=== PATIENT | female | born 1950 | race Caucasian/White ===

== ENCOUNTER 2023-06-28 14:44 | Emergency (ER) | payer MEDICARE, SELFPAY ==
--- NOTE | ~2023-06-28 | XR_ITS ---
EXAMINATION: XR WRIST, RIGHT CLINICAL INFORMATION: Status post fall with pain. COMPARISON: None available. TECHNIQUE: PA, lateral, and oblique views of the right wrist. FINDINGS: The exam is limited. There is a distal radial fracture with volar angulation. Distal ulna and a ulnar side process appears to be intact. The carpal bones are visualized and unremarkable. There is a diffuse osteopenia. There is mild dorsal wrist soft tissue swelling. XR/XR wrist RT 2V IMPRESSION: : These fracture distal radius with moderate dorsal soft tissue swelling. Please note the exam is limited as patient is unable to move hand and wrist for appropriate views
--- NOTE | ~2023-06-28 | XR_ITS ---
EXAMINATION: XR WRIST, RIGHT CLINICAL INFORMATION: Post reduction. COMPARISON: Reduction radiographs done earlier today. TECHNIQUE: Two views of the right wrist. FINDINGS: Improved alignment at the fracture site involving the distal radius persistent angulation deformity on the lateral projection. No new abnormality. XR/XR wrist RT 2V IMPRESSION: Post reduction radiograph showing improved alignment on the frontal projection and persistent angulation deformity on the lateral view. No new abnormality.
[2023-06-28 14:46] VITALS: BP 164/94; PULSE 83; RESP 17; TEMP 37.2; O2SAT 97; BMI 21.4
--- NOTE | 2023-06-28 14:51 | ED.UPPEXIN ---
HPI - Extremity Injury (Upper) General Chief Complaint: Extremity Injury, Upper Stated Complaint: r arm inj Time Seen by Provider: 06/28/23 15:02 Source: patient Mode of arrival: ambulatory Limitations: no limitations History of Present Illness HPI narrative: Patient is a 73-year-old female presenting to the emergency department from urgent care with report of right wrist fracture. Patient states she was outdoors on her morning walking this morning when she tripped and fell onto outstretched arms. She denies hitting her head, denies loss of consciousness. She does not take any anticoagulants. She denies any past medical history and states she does not take any medications. Denies any numbness or tingling to her right hand. She arrives with a splint to her right wrist. complaint: injury to: right and wrist Onset (ago): hour(s) Other Extremity Injury: right: wrist Other injuries: none Handedness: right Place: outdoors Severity: moderate Relieving factors: rest Exacerbating factors: movement of extremity Context: fall Associated symptoms: denies other symptoms Treatments prior to arrival: splint Related Data Allergies Allergy/AdvReac Type Severity Reaction Status Date / Time No Known Allergies Allergy Verified 06/28/23 14:52 Review of Systems Review of Systems: As per HPI. Yes all other systems are reviewed and are negative Constitutional: Constitutional: Reports as per HPI [facility] Social History Social History Advance Directives: No Advance Directives Information Provided: No Physical Exam Vital Signs: Vital Signs: Last Vital Signs Temp 99.0 F 06/28/23 14:46 Pulse 83 06/28/23 14:46 Resp 17 06/28/23 14:46 BP 164/94 H 06/28/23 14:46 Pulse Ox 97 06/28/23 14:46 O2 Del Method Room Air 06/28/23 14:46 BMI result Body Mass Index 21.4 Vital signs have been reviewed and appear to be correct. Blood pressure elevated. Heart rate normal. Respiratory rate normal. Temperature normal. Oxygen saturation normal. Const: General: cooperative, healthy appearing and no acute distress Orientation/consciousness: oriented to person, oriented to place, oriented to time and patient oriented x3 Limitations: no limitations HEENT: Head: Yes normocephalic and Yes atraumatic Ears: external ears normal General nose exam: Normal external nose present Face and sinus: Yes face symmetric Mouth: oropharynx normal and moist mucous membranes Throat: Yes uvula midline Eyes: Pupils: Equal, round and reactive pupils present Neck: Neck: Yes normal visual inspection and Yes supple Resp: Effort & Inspection: normal respiratory effort and able to speak in complete sentences Auscultation: clear to auscultation bilaterally Cardio: Rate: regular rate Rhythm: regular rhythm Heart sounds: S1 normal heart sound present and S2 normal heart sound present GI: Palpation (GI): Soft to palpation and nontender Auscultation: normoactive bowel sounds : General: Yes no CVA tenderness Back/Spine/Pelvis: Back: no CVA tenderness Skin: General skin exam: elasticity normal and turgor normal Neuro: General: oriented to person, oriented to place, oriented to time, patient oriented x3, moves all extremities, no focal motor deficits and CN's II-XI intact bilaterally Cranial nerves: Yes Equal, round and reactive pupils present Cognition (Neuro): normal cognition Extrem: General: Yes full ROM, Yes normal exam except as noted, Yes no pedal edema and Yes no calf tenderness Right upper extremity: wrist Details: abnormal to inspection Details: obvious deformity, tenderness Location: of the distal radius, abnormal ROM Details: held in an abnormal fashion Details: with extension, crepitus Location: of the distal radius, normal vascular exam and radial pulse present; no lacerations and no ecchymosis and Extremity exam: right hand Details: normal to inspection, normal capillary refill, neuromotor exam normal, neurosensory exam normal and normal ROM of fingers Left upper extremity: normal to inspection, full ROM and normal capillary refill Psych: Mental Status: mental status grossly normal Affect: normal affect Thought process: Normal thought process present Course Course Course Narrative: This is a rapid medical exam. Deferred additional HPI, ROS, PE to primary provider. 73 yo female with no known medical problems, right hand dominant here with mechanical fall with catching herself with her right wrist. Denies hitting head or LOC. No AC therapy use. Seen at and referred in for reduction/splinting. Has disc from - Will need x-ray here. VSS Medications Administered Discontinued Medications Generic Name Dose Route Start Last Admin Trade Name Freq PRN Reason Stop Dose Admin Lidocaine HCl 10 ml 06/28/23 15:30 06/28/23 16:43 Lidocaine Hcl 2 % 20 Ml Vial INFILTRATI 06/28/23 15:31 10 ml ONCE ONE Administration Medical Decision Making Medical Decision Making [facility] Narrative: Patient is a 73-year-old female presenting to the emergency department from urgent care with report of right wrist fracture. On exam patient is awake, A+Ox3, VS WNL, afebrile, normal neurological exam without focal deficits, right distal wrist deformity, 2+ radial pulse, full ROM all fingers of right hand, neurovascularly intact distal. Given reported symptoms and physical exam findings, initial differential includes wrist fracture, dislocation. X-ray confirms displaced right distal radius fracture. My interpretation is in agreement with the radiologist's interpretation. Hematoma block and reduction attempted with Dr. Dia. Post-reduction films obtained. Case discussed with Dr. Wade who feels reduction is adequate and patient can follow-up in the clinic this week. Patient advised to avoid getting her splint wet and instructed not to remove her splint. Return precautions discussed at bedside. Instructed patient to medicate with Tylenol and ibuprofen, keep arm elevated at rest, apply ice. Patient instructed no use of right arm until cleared by Ortho. Patient verbalized understanding of and agreement with plan. Differential Diagnosis Differential Diagnoses: The differential diagnosis associated with the presentation includes As per MDM. Admission/Observation Consideration of admission/observation: Escalation of care including admission/observation considered Consult Healthcare Provider Management of the patient was discussed with: Associate [employer] Psychologist (Dr. Wade) Independent Interpretation I performed an independent interpretation of an: Plain X-Ray Interpretation: Displaced distal radius fracture right wrist Radiology Impression Discussion of test interpretation with radiology: I have reviewed the radiologist's reading. Radiologist Impression: XR/XR wrist RT 2V IMPRESSION: : These fracture distal radius with moderate dorsal soft tissue swelling. ? Please note the exam is limited as patient is unable to move hand and wrist for appropriate views External Record Review External record reviewed: Inpatient record, Office record and Outpatient record Attestation Attending Attestation: I reviewed CONTACT [employer] MOLDER/PA/Resident note, assessment and plan. I agree with the documentation, assessment and plan unless otherwise stated. Patient had a deformity of the right wrist. X-ray demonstrated volar angulation to the distal radius. A joint reduction was performed. PA will contact orthopedic and arrange appropriate follow-up. Procedures Orthopedic Fracture Reduction Fracture #1: Time Out Performed: Yes Side: right Fracture Reduction Location: radius Analgesia: hematoma block Technique: direct manipulation and traction/counter-traction Post Reduction X-rays Demonstrate: acceptable reduction Post-reduction neuro exam: intact Post-reduction vascular exam: intact Splint Applied: Yes Patient Tolerated Procedure: well Discharge Plan Discharge Clinical Impression: Closed right radial fracture Patient Disposition: Home, Self-Care Instructions: Arm Fracture in Adults (ED), Splint Care (ED), R.I.C.E. Treatment (ED) Additional Instructions: You were evaluated in the emergency department today for a right wrist fracture. A wrist reduction was attempted in the emergency department and a splint was applied. Please avoid getting the splint wet. Do not remove the splint. You will need to follow-up with orthopedics for further management of your fracture, please call their office thing Friday morning for an appointment. Please rest, ice, and elevate your arm. We recommend that you take 600 mg ibuprofen every 6 hours or Tylenol 650 mg every 6 hours as needed for pain. If needed, you can alternate these medications so that you take 1 medication every 3 hours. For instance, at noon take ibuprofen, then at 3:00 p.m. take Tylenol, then at 6:00 p.m. take ibuprofen. Return to the emergency department if you experience worsening pain, numbness, tingling, change of color in your fingers, or any other concerning symptoms. Referrals: [facility] [place] [Provider Group] Stand Alone Forms: Work/School Release Interventions: ED Discharge Assessment Last Done: 06/28/23 18:22 Discharge Date/Time: 06/28/23 18:23
[2023-06-28] MEDS: Lidocaine HCl 2 % 20 ML VIAL 10 ML INFILTRATI (16:43)
== END 2023-06-28 18:23 | disposition home or self-care (01) ==
PROVIDERS: Emergency Provider Emergency Medicine; PCP Family Medicine
DX: S52.501A Unspecified fracture of the lower end of right radius, initial encounter for closed fracture (principal); W01.0XXA Fall on same level from slipping, tripping and stumbling without subsequent striking against object, initial encounter; Y93.01 Activity, walking, marching and hiking; Y92.480 Sidewalk as the place of occurrence of the external cause; Y99.9 Unspecified external cause status
CPT/HCPCS: 25605; 73100; 99282; 99284